=== PATIENT | female | born 1955 | race Hispanic/Latino ===

== ENCOUNTER 2018-08-03 07:45 | Outpatient (CLI) | payer OTHER ==
--- NOTE | 2018-08-03 09:06 | BD ---
DEXA BONE DENSITY STUDY: HISTORY: Postmenopausal. FINDINGS: Lumbar Spine: BMD (g/cm2) L1 0.544 T-Score: -4.1 L2 0.521 T-Score: -4.6 L3 0.484 T-Score: -5.4 L4 0.477 T-Score: -5.3 L1-L4 0.505 T-Score: -4.9 Femoral Neck: 0.462 T-Score: -3.5 Total Femur: 0.671 T-Score: -2.2 Impression: Osteoporosis of the lumbar spine and left femoral neck. POS: BRIAN
== END 2018-08-03 07:46 | disposition home or self-care (01) ==
LOC: BICMAMMO 07:45
PROVIDERS: ATTEND Obstetrics & Gynecology
DX: Z12.31 Encounter for screening mammogram for malignant neoplasm of breast (principal); Z13.820 Encounter for screening for osteoporosis; M81.0 Age-related osteoporosis without current pathological fracture
CPT/HCPCS: 77063; 77067; 77080

== ENCOUNTER 2019-07-10 09:39 | Outpatient (CLI) | payer OTHER ==
--- NOTE | 2019-07-10 11:04 | MMO ---
Bilateral MAMMO Bilat Diag [id number]. CLINICAL HISTORY: Patient is 64 years old and is seen for diagnostic exam and pain in the right breast. The patient has no family history of breast cancer. The patient has no personal history of cancer. VIEWS: The views performed were: bilateral craniocaudal with tomosynthesis; bilateral mediolateral oblique with tomosynthesis; and bilateral mediolateral with tomosynthesis. FILMS COMPARED: The present examination has been compared to prior imaging studies performed at [facility] on 06/04/2016, 06/22/2017, 08/03/2018 and 07/10/2019. This study has been interpreted with the assistance of computer-aided detection. MAMMOGRAM FINDINGS: There are scattered fibroglandular densities. There are no suspicious masses, suspicious calcifications, or new areas of architectural distortion. IMPRESSION: THERE IS NO MAMMOGRAPHIC EVIDENCE OF MALIGNANCY. A ROUTINE FOLLOW-UP MAMMOGRAM IN 1 YEAR IS RECOMMENDED. THE RESULTS OF THIS EXAM WERE SENT TO THE PATIENT. ACR BI-RADS Category 1 - Negative MAMMOGRAPHY NOTE: 1. A negative mammogram report should not delay a biopsy if a dominant of clinically suspicious mass is present. 2. Approximately 10% to 15% of breast cancers are not detected by mammography. 3. Adenosis and dense breasts may obscure an underlying neoplasm. Reported by: VICKEY TEE MD Electonically Signed: [id number]
--- NOTE | 2019-07-10 12:27 | ULT ---
RIGHT BREAST ULTRASOUND: Date: 07/10/19 HISTORY: Right breast pain at the 9 o'clock position. FINDINGS: Sonographic evaluation at the region of palpable concern demonstrates no abnormality. Correlation is made with the mammogram of same date. IMPRESSION: BI-RADS Category 1 - Negative. Return to annual mammographic screening. POS: OFF
== END 2019-07-10 09:40 | disposition home or self-care (01) ==
LOC: BICMAMMO 09:39
PROVIDERS: ATTEND Obstetrics & Gynecology
DX: N64.4 Mastodynia (principal)
CPT/HCPCS: 77066; G0279